=== PATIENT | female | born 1960 | race Caucasian/White ===

== ENCOUNTER 2019-01-08 12:26 | Emergency (ER) | payer SELFPAY ==
[~2019-01-08] VITALS: Ht 160 cm; Wt 68.0 kg
[2019-01-08] MEDS ORDERED: predniSONE 20 MG TAB PO ONE (13:00)
[2019-01-08] MEDS ORDERED: RT-ALBUTEROL/IPRATROPIUM 3 ML (DUONEB) VIAL INH ONE (13:00)
[2019-01-08] MEDS ORDERED: HYDROcodone/APAP 5 MG/325 MG (LORTAB) TAB PO ONE (13:00)
[2019-01-08] MEDS ORDERED: IBUPROFEN 600 MG (MOTRIN) TAB PO ONE (13:00)
[2019-01-08] MEDS ORDERED: BENZONATATE 100 MG (TESSALON) CAPSULE PO SCH (13:00)
--- NOTE | 2019-01-08 13:32 | Diagnostic Imaging Report ---
INDICATION: Right-sided chest pain radiating to the back. COMPARISON: None. DISCUSSION: Two views of the chest were obtained. Normal heart size. No focal consolidation, pleural fluid, or pneumothorax. No osseous abnormality. IMPRESSION: 1. Negative chest. Dictated by: Dictated on workstation # [id number]
[2019-01-08] MEDS ORDERED: RT-ALBUINH IH (13:53)
[2019-01-08] MEDS ORDERED: OSLT75C PO (13:53)
[2019-01-08] MEDS ORDERED: BENZ100C18 PO (13:53)
[2019-01-08] MEDS ORDERED: HYDR-4226 PO (13:53)
[2019-01-08] MEDS ORDERED: ONDA8TAB13 PO (13:53)
[2019-01-08 13:58] VITALS: BP 130/99
--- NOTE | 2019-01-08 13:59 | ED General ---
General Chief Complaint: Chest Wall/Rib Pain Stated Complaint: SIDE/ABD PAIN Nursing Triage Note: STATES SHE HAS BEEN SICK FOR SEVERAL WEEKS WITH COLD SYMPTOMS AND COUGH. YESTERDAY HER RIGHT SIDE STARTED HURTING SEVERELY WITH COUGHING RATED AT 9/10. STATES IT DOES NOT HURT RIGHT NOW SINCE SHE IS NOT MOVING. Nursing Sepsis Screen: No Definite Risk History of Present Illness Date Seen by Provider: Jan 08, 2019 Time Seen by Provider: 13:55 Initial Comments Patient presents emergency department for evaluation of cough and congestion that started 2 weeks ago she became worse approximately 2 days ago she started having fevers and right-sided lower rib pain. She says it hurts whenever she coughs and moves or presses on her ribs. She has some shortness of breath but no nausea vomiting. She says she has chills but she has not measured any fevers and she does not have a thermometer. Her sinuses are quite congested and she says her cough is productive of a yellowish sputum. She denies any hemoptysis or leg swelling. She says that she is healthy overall that she is a smoker and has not been diagnosed with asthma or COPD. She is in no obvious distress but is febrile. Allergies and Home Medications Allergies Coded Allergies: No Known Drug Allergies (Unverified , 01/08/19) Home Medications Albuterol Sulfate 1 Puff Puff, 2 PUFF IH Q4H 1 PUFF = 90 MCG Prescribed by: ISSA CHAMBERS on 01/08/19 135 Benzonatate 100 Mg Capsule, 100 MG PO TID PRN for COUGH Prescribed by: ISSA CHAMBERS on 01/08/19 135 Hydrocodone/Acetaminophen 1 Each Tablet, 1 TAB PO Q6H Prescribed by: ISSA CHAMBERS on 01/08/19 135 Ondansetron 8 Mg Tab.rapdis, 8 MG PO Q6H PRN for NAUSEA/VOMITING-1ST LINE Prescribed by: ISSA CHAMBERS on 01/08/19 135 Oseltamivir Phosphate 75 Mg Cap, 75 MG PO BID Prescribed by: ISSA CHAMBERS on 01/08/191352 Patient Home Medication List Home Medication List Reviewed: Yes Review of Systems Review of Systems Constitutional: chills; No fever EENTM: nose congestion; No throat pain Respiratory: cough; No dyspnea on exertion, No short of breath; wheezing Gastrointestinal: No diarrhea, No vomiting Musculoskeletal: joint pain, muscle pain All Other Systems Reviewed Negative Unless Noted: Yes Past Phpfhyf-Adxotf-Vlgadq Hx Patient Social History Recent Foreign Travel: No Contact w/Someone Who Travel: No Recent Infectious Disease Expo: No Recent Hopitalizations: No Physical Abuse: No Sexual Abuse: No Mistreated: No Seasonal Allergies Seasonal Allergies: No Past Medical History Section Respiratory: No Cardiac: Yes (BRADYCARDIA) Neurological: No Genitourinary: No Gastrointestinal: No Musculoskeletal: No Endocrine: No HEENT: No Cancer: No Psychosocial: No Integumentary: No Blood Disorders: No Adverse Reaction/Blood Tranf: No Physical Exam Vital Signs Vital Signs - First Documented 01/08/19 12:39 Temp 100.0 Pulse 115 Resp 20 B/P (MAP) 112/86 (95) Pulse Ox 98 Capillary Refill : Less Than 3 Seconds Height, Weight, BMI Height: 5'3.00" Weight: 150lbs. oz. 68.513720po; BMI Method:Stated General Appearance: No Apparent Distress HEENT: TMs Normal, Pharynx Normal Neck: Supple Respiratory: No Accessory Muscle Use, No Respiratory Distress, Wheezing Cardiovascular: No Gallop, No Murmur, Normal Peripheral Pulses, Tachycardia Extremity: No Pedal Edema Skin: Normal Color, Warm/Dry Progress/Results/Core Measures Suspected Sepsis Recent Fever Within 48 Hours: No Infection Criteria Present: Suspected New Infection New/Unexplained Altered Menta: No Sepsis Screen: No Definite Risk SIRS Temperature:100.0 Pulse: 115 Respiratory Rate: 20 Blood Pressure 112 /86 Mean: 95 Results/Orders Micro Results Microbiology 01/08/19 Influenza Types A,B Antigen (SU) - Final, Complete My Orders Orders - ISSA CHAMBERS DO Chest Pa/Lat (2 View) (01/08/19 12:48) Prednisone Tablet (Deltasone Tablet) (01/08/19 13:00) Benzonatate Capsule (Tessalon Perles) (01/08/19 13:00) Hydrocodone/Apap 5/325 Tablet (Lortab 5 (01/08/19 13:00) Albuterol/Ipra Inhalation Soln (Duoneb I (01/08/19 13:00) Svn Small Volume Nebulizer (01/08/19 12:48) Influenza A And B Antigens (01/08/19 12:52) Ibuprofen Tablet (Motrin Tablet) (01/08/19 13:00) Medications Given in ED Current Medications Medications Dose Ordered Sig/Oliva Route Start Time Stop Time Status Last Admin Dose Admin Acetaminophen/ Hydrocodone Bitart 1 tab ONCE ONCE PO 01/08/19 13:00 01/08/19 13:01 DC 01/08/19 13:03 1 TAB Albuterol/ Ipratropium 3 ml ONCE ONCE INH 01/08/19 13:00 01/08/19 13:01 DC 01/08/19 12:59 3 ML Ibuprofen 600 mg ONCE ONCE PO 01/08/19 13:00 01/08/19 13:01 DC 01/08/19 13:02 600 MG Prednisone 50 mg ONCE ONCE PO 01/08/19 13:00 01/08/19 13:01 DC 01/08/19 13:03 50 MG Vital Signs/I&O 01/08/19 12:39 Temp 100.0 Pulse 115 Resp 20 B/P (MAP) 112/86 (95) Pulse Ox 98 Capillary Refill : Less Than 3 Seconds Blood Pressure Mean: 95 Progress Note : Time: 13:58 Progress Note Patient with symptoms that worsened over the past 2 days and she is influenza B- positive. I went over the benefits and risks of Tamiflu and patient said that she was uncertain if she would like to have it incised that he would prescribe it for her and she would need to start as soon as possible if she wants to try taking Tamiflu. I told her that she has to stop smoking as this is keeping her from getting any better and she will chronically be ill with infections if she continues to smoke. She has costochondritis that wish to take NSAIDs prescribe Rochelle for breakthrough pain. I told her to follow with her primary care provider as soon as possible and come back to the ED sooner with worsening pain shortness of breath or general concerns. Patient aware and agreeable with plan for discharge and verbalized understanding of the need for short-term follow-up and strict ED return precautions discussed as above. Departure Impression Primary Impression: Wheezing Additional Impressions: Influenza A Costochondritis, acute Disposition: 01 HOME, SELF-CARE Condition: Stable Departure-Patient Inst. Decision time for Depature: 13:59 Patient Instructions: Flu, Adult (DC), Costochondritis (DC) Scripts Oseltamivir Phosphate (Tamiflu) 75 Mg Cap 75 MG PO BID, #10 CAP Prov: ISSA CHAMBERS DO 01/08/19 Ondansetron (Ondansetron Odt) 8 Mg Tab.rapdis 8 MG PO Q6H PRN for NAUSEA/VOMITING-1ST LINE, #15 TAB Prov: ISSA CHAMBERS DO 01/08/19 Albuterol Sulfate (PROAIR HFA) 1 Puff Puff 2 PUFF IH Q4H, #1 INHALER 1 PUFF = 90 MCG Prov: ISSA CHAMBERS DO 01/08/19 Hydrocodone/Acetaminophen (Rochelle 5-325 Tablet) 1 Each Tablet 1 TAB PO Q6H for Pain MDD 10, #10 TAB Prov: ISSA CHAMBERS DO 01/08/19 Benzonatate (TESSALON PERLES) 100 Mg Capsule 100 MG PO TID PRN for COUGH, #15 CAP Prov: ISSA CHAMBERS DO 01/08/19 ISSA CHAMBERS DO Jan 08, 2019 13:59
== END 2019-01-08 14:05 | disposition home or self-care (01) ==
LOC: ER FS 12:26
DX: J10.1 Influenza due to other identified influenza virus with other respiratory manifestations (principal); M94.0 Chondrocostal junction syndrome [Tietze]; Z79.51 Long term (current) use of inhaled steroids; Z98.890 Other specified postprocedural states
CPT/HCPCS: 71046; 87804